=== PATIENT | male | born 1965 | race Caucasian/White ===

== ENCOUNTER → 2018-03-31 09:48 | Outpatient (CLI) | payer OTHER, SELFPAY ==
--- NOTE | 2018-03-31 09:50 | RAD_ITS ---
STUDY: X-RAY - RIGHT SHOULDER REASON FOR EXAM: Male, 52 years old. Chronic shoulder pain. TECHNIQUE: 3 view(s) of the shoulder. COMPARISON: None. FINDINGS: Normal glenohumeral articulation. Normal acromioclavicular joint. Normal acromion. Normal humeral head and visualized proximal humerus. The soft tissue structures are unremarkable. Normal visualized pulmonary apex. RAD/Shoulder min 2 Views IMPRESSION: No significant abnormality identified Electronically Signed: Mohinder Thomas MD at 18:33 EDT , Service support ,
== END ==
PROVIDERS: Family Provider Internal Medicine; PCP Internal Medicine; Visit Provider Orthopaedic Surgery
DX: M25.511 Pain in right shoulder (principal)
CPT/HCPCS: 73030

== ENCOUNTER 2019-03-30 06:27 | Day surgery (SDC) | payer OTHER, SELFPAY ==
[2019-03-30] VITALS (7 sets, daily range): BP systolic 87–124; BP diastolic 59–81; PULSE 59–69; RESP 16; TEMP 36–36.7; O2SAT 95–97; BMI 30.6
--- NOTE | 2019-03-30 07:36 | PCM.HP.STD ---
Problem List (1) Personal history of colonic polyps Status: Acute History of Present Illness Date of Admission: 03/30/19 The patient is a 53 year old M who has had personal history of colon polyps. April 15, 2015 I performed a colonoscopy with polypectomy. In the ascending colon he had a tubular adenoma that I resected with a cold forcep. He denies any acute change in health. Is otherwise been feeling well. No bright red blood per rectum or melena. No abdominal pain. No change in bowel habits. Past Medical History Allergies lovastatin Allergy (Verified 03/27/19 16:11) joint pain miconazole [From Neosporin AF] Allergy (Verified 03/27/19 16:11) rash Home Medications: Ambulatory Orders Medication Instructions Recorded aspirin 81 mg tablet,delayed 81 mg PO QDAY 03/31/18 release cholecalciferol (vitamin D3) 5,000 2,000 unit PO QDAY 03/31/18 unit capsule gabapentin 600 mg tablet 600 mg PO TID 03/31/18 hydrochlorothiazide 12.5 mg capsule 25 mg PO QDAY 03/31/18 lisinopril 30 mg tablet 40 mg PO QDAY 03/31/18 mecobalamin (vitamin B12) 1,000 1,000 mcg SUBLINGUAL QDAY 03/31/18 mcg disintegrating tablet,sublingual omeprazole 20 mg capsule,delayed 20 mg PO QDAY 03/31/18 release rosuvastatin 40 mg tablet 40 mg PO QHS 03/31/18 Allopurinol 100 mg PO DAILY 03/27/19 Multivit-Min/Folic/Vit K/Lycop 1 ea PO DAILY 03/27/19 [Men's 50 Plus Multivitamin Tab] Smoking Status: Never smoker Tobacco Use: Chew Review of Systems Constitutional: Denies: Anorexia HEENT: Denies: Difficulty Swallowing Cardiovascular: Denies: Chest Pain Respiratory: Denies: Cough Gastrointestinal: Denies: Abdominal Pain, Hematochezia, Melena Endocrine: Denies: Change in Body Habitus VTE Information - Inpt Only VTE Present on Admission: No Patient Problems: Active and Suspected Problems Personal history of colonic polyps (Acute) - Physical Exam General: Alert, Oriented x3, Cooperative, No apparent distress Oral: Moist Mucosa Neck: Supple Lungs: Clear to auscultation Cardiovascular: Regular rate, Regular Rhythm Abdomen: Bowel Sounds Present, Soft, Non Tender Extremities: No Calf Tenderness Psych/Mental Status: Normal Affect Vital Signs Temp Pulse Resp BP Pulse Ox 96.8 F L 65 16 124/81 H 96 03/30/19 06:51 03/30/19 06:51 03/30/19 06:51 03/30/19 06:51 03/30/19 06:51 Oxygen Delivery Method Room Air Weight: 184 lb 1.376 oz Body Mass Index (BMI) 30.6 Assessment/Plan All Active Problems Personal history of colonic polyps (Acute) 53-year-old gentleman. Personal history of tubular adenoma of the ascending colon. I recommend a surveillance colonoscopy with possible biopsy or polypectomy is indicated. He is aware of the technique, benefits, risks, alternatives. He has had an opportunity to ask and have questions answered. He presents via our open access program today. Stuart Tracy M.D., F.A.C.S.
--- NOTE | 2019-04-04 10:44 | OP.ENDO_ITS ---
04/04/2019 Romeo Burch Re : Colonoscopy procedure for Koby Robbins Deafer Burch This procedure was performed on Saturday, March 30, 2019. My impressions and recommendations are as follows: Impressions : - Diverticulosis in the sigmoid colon. - The examination was otherwise normal. - No specimens collected. Recommendations : - Discharge patient to home. - Resume previous diet. - Continue present medications. - Repeat colonoscopy in 5 years for surveillance. My findings are described in the full procedure note, which is enclosed. If I can be of further assistance, please feel free to contact me at Doctor phone number(s): Work: . Sincerely, Stuart Tracy MD 03/30/2019 8:02:25 AM This report has been signed electronically.
== END 2019-03-30 08:38 | disposition home or self-care (01) ==
LOC: EN 06:27 → AC 06:29
PROVIDERS: Family Provider Internal Medicine; PCP Internal Medicine; Referring Provider Internal Medicine; Visit Provider Surgery
PROC: 0DJD8ZZ Inspection of Lower Intestinal Tract, Via Natural or Artificial Opening Endoscopic (ICD-10-PCS; CPT 45378; principal; 2019-03-30 07:25)
DX: Z86.010 Personal history of colon polyps (principal); K57.30 Diverticulosis of large intestine without perforation or abscess without bleeding; I10 Essential (primary) hypertension; G47.30 Sleep apnea, unspecified; K21.9 Gastro-esophageal reflux disease without esophagitis; E78.00 Pure hypercholesterolemia, unspecified; Z79.82 Long term (current) use of aspirin; Z79.899 Other long term (current) drug therapy
CPT/HCPCS: 45378; J7120; J2405

== ENCOUNTER → 2019-08-13 14:22 | Outpatient (CLI) | payer OTHER, SELFPAY ==
[2019-08-13 14:08] VITALS: BMI 30.6
--- NOTE | 2019-08-13 14:22 | RAD_ITS ---
STUDY: X-RAY - LEFT SHOULDER REASON FOR EXAM: Male, 54 years old. Chronic pain, no history of injury. TECHNIQUE: 4 view(s) of the shoulder. COMPARISON: None. 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 Normal acromioclavicular joint. Normal acromion. Normal humeral head and visualized proximal humerus. The soft tissue structures are unremarkable. There is no demonstrated fracture. Normal visualized pulmonary apex. RAD/Shoulder min 2 Views IMPRESSION: Degenerative disease as described above, otherwise normal x-ray examination of the shoulder. Electronically Signed: Irlanda Bailon MD at 2:02 EST , Service support ,
== END ==
PROVIDERS: Family Provider Internal Medicine; PCP Internal Medicine; Referring Provider Physician Assistant; Visit Provider Physician Assistant
DX: M25.512 Pain in left shoulder (principal)
CPT/HCPCS: 73030

== ENCOUNTER 2022-08-03 13:48 | Emergency (ER) | payer OTHER, SELFPAY ==
[2022-08-03 13:50] VITALS: BP 139/87; PULSE 99; RESP 20; TEMP 36.7; O2SAT 97; BMI 34.2
--- NOTE | 2022-08-03 14:15 | EDS_ITS ---
HPI History of Present Illness Chief Complaint: Fall Narrative Narrative: 57-year-old male here for fall. Patient states he fell for approximate 12 feet. Fell onto his right side. States he got right-sided pain is constant, severe without alleviating factors. Denies taking blood thinners. He does note head trauma. Denies loss of consciousness. Does note back and abdominal pain as well PFSH [facility] Medical History (Updated 08/03/22 @ 17:[address] Duarte Ruiz, DO) Anemia Gout High cholesterol HTN (hypertension) Neuropathy Home Medications aspirin 81 mg tablet,delayed release 81 mg PO QDAY 03/31/18 [History Last Taken 03/19/19] cholecalciferol (vitamin D3) 125 mcg (5,000 unit) capsule 2,000 unit PO QDAY SUPPLEMENT 03/31/18 [History Last Taken Unknown] gabapentin 600 mg tablet 600 mg PO TID PAIN 03/31/18 [History Last Taken 03/30/19 05:50 600 MG] hydrochlorothiazide 12.5 mg capsule 25 mg PO QDAY HTN 03/31/18 [History Last Taken Unknown] lisinopril 30 mg tablet 40 mg PO QDAY HTN 03/31/18 [History Last Taken 03/30/19 05:50 40 MG] mecobalamin (vitamin B12) 1,000 mcg disintegrating tablet,sublingual 1,000 mcg sublingual QDAY 03/31/18 [History Last Taken Unknown] omeprazole 20 mg capsule,delayed release 20 mg PO QDAY GERD 03/31/18 [History Last Taken 03/30/19 05:50 20 MG] rosuvastatin 40 mg tablet 40 mg PO QHS CHOLESTEROL 03/31/18 [History Last Taken Unknown] allopurinol 100 mg tablet 100 mg PO DAILY GOUT 03/27/19 [History Last Taken Unknown] yytryoeaqgkq-qwj-dfryc acid-vit K-lycop 400 mcg-20 mcg-370 mcg tablet 1 ea PO DAILY SUPPLEMENT 03/27/19 [History Last Taken Unknown] Allergy/AdvReac Type Severity Reaction Status Date / Time lovastatin Allergy joint pain Verified 08/03/22 13:54 miconazole Allergy rash Verified 08/03/22 13:54 [From Neosporin AF] Social History (Updated 08/14/19 @ 14:03 by Damaso Lee PA, PA) Smoking Status: Never smoker ROS ROS ED ROS Narrative Constitutional: Denies fever HEENT: Denies sore throat Neck: Denies neck pain Cardiovascular: Denies chest pain, syncope Respiratory: Denies shortness of breath GI: Denies nausea vomiting . Endorses abdominal pain : Denies changes in urinary habits Musculoskeletal: Notes diffuse joint pain, back pain, left shoulder pain Neurologic: Denies numbness weakness or loss of sensation Skin denies rash EXAM Physical Exam Narrative Exam Narrative: Primary Survey Airway: Intact Breathing: Bilateral breath sounds Circulation: Palpable bilateral femorals, Palpable bilateral radial, Palpable bilateral DP and Palpable bilateral PT Disability / Spine precautions GCS Score: Eye Openin Verbal Response: 5 Motor Response: 6 Secondary Survey Constitutional: Please see MDM Head: Atraumatic, Midface stable, NO jaw malocclusion, No Cephalohematoma, and No Lacerations noted Eye: Pupils equal round and reactive to light, Extraocular muscles intact and No periorbital ecchymosis or stepoff, no evidence of entrapment ENT: Oropharynx clear, no lacerations, no hemotympanum, no raccoon eyes or mora sign Cervical spine / Neck: No cervical spine bony tenderness, crepitance, or stepoff deformity Trachea midline Lungs: Clear to auscultation, No asymmetric rise and No crepitus, no flail chest. TTP over right ribs. Cardiac: Regular rate and rhythm and No murmurs Abdomen: Soft, No rebound, mild diffuse tenderness Pelvis: Pelvis stable to compression : No evidence of genital injury Back: No midline bony tenderness to thoracic/lumbar/sacral spines Neuro: At baseline, intact strength and sensation in bilateral upper and lower extremities. 2+ patellar reflexes bilaterally. Extremities: NO gross Deformities Psych: Normal affect Const Vital Signs: 08/03/22 15:32 08/03/22 17:20 08/03/22 17:54 Pulse Rate 108 H 106 H 108 H Respiratory Rate 19 H 22 H 20 H Blood Pressure 156/88 H 160/102 H 160/102 H Blood Pressure Mean 110 121 Pulse Ox 95 96 Oxygen Delivery Method Room Air Room Air [facility] [place] Medical decision making narrative: 57-year-old male here after approximate 12 foot fall. The patient was hemodynamically stable, afebrile, nontoxic-appearing. Primary secondary trauma surveys concerning for intracranial normalities, cervical spine abnormalities, chest abnormalities, abnormalities of the abdomen and pelvis, imaging was unremarkable. Radiography Diagnostic Testing: Clinical Impression(s) from Imaging Studies Brain CT 08/03/22 14:27 IMPRESSION: Normal unenhanced CT scan of the brain. Electronically Signed: Gage Linda MD at 15:43 EDT , Cervical Spine CT 08/03/22 14:27 IMPRESSION: Multilevel degenerative changes, as described above. Electronically Signed: Gage Linda MD at 15:42 EDT , Chest/Abdomen/Pelvis CT 08/03/22 14:27 IMPRESSION: Degenerative changes of the left shoulder joint with findings suggestive of a osteochondromatosis. Right renal cysts. Electronically Signed: Gage Linda MD at 15:39 EDT , Lumbar Spine CT 08/03/22 14:27 IMPRESSION: Multilevel degenerative changes, as described above. Electronically Signed: Gage Linda MD at 15:40 EDT , Thoracic Spine CT 08/03/22 14:27 IMPRESSION: Spondylosis and disc space narrowing at multiple levels. No evidence of a compression fracture. Electronically Signed: Gage Linda MD at 15:48 EDT , Shoulder X-Ray 08/03/22 17:15 IMPRESSION: Stable degenerative changes of the left shoulder without acute fracture or dislocation. Electronically Signed: Edu Sorensen DO at 17:41 EDT Reading Location ID and State: [facility] / [place] Tel [phone], Service support , Treatment and Re-Evaluation Narrative: Tertiary exam with ongoing left shoulder pain. Dedicated left shoulder image was negative for acute fracture dislocation. Patient was given a sling and dis charged home in stable condition with a sling. Return precautions discussed. Follow-up discussed. Shared decision making: I had a long discussion with the patient and or visitors regarding risk/benefits of further testing or admission. They decided to forego any further testing or admission. They are aware of of the risk/benefits inherent in this decision and have voiced understanding. Discharge Plan Triage Chief Complaint: Fall ED Provider: Duarte Ruiz Dx/Rx/DC Orders Clinical Impression: CHI (closed head injury), Contusion of left shoulder, Contusion of rib Instructions: ED Shoulder Contusion Prescriptions: No Action lisinopril 30 mg tablet 40 mg PO QDAY mecobalamin (vitamin B12) 1,000 mcg tablet,disintegrating 1,000 mcg SUBLINGUAL QDAY cholecalciferol (vitamin D3) 5,000 unit capsule 2,000 unit PO QDAY rosuvastatin 40 mg tablet 40 mg PO QHS gabapentin 600 mg tablet 600 mg PO TID hydrochlorothiazide 12.5 mg capsule 25 mg PO QDAY omeprazole 20 mg capsule,delayed release(DR/EC) 20 mg PO QDAY aspirin 81 mg tablet,delayed release (DR/EC) 81 mg PO QDAY allopurinol 100 MG tablet 100 mg PO DAILY rrlnyujo-nxt-wzsdq-vit K-lycop 1 EACH tablet 1 ea PO DAILY Primary Care Provider: Romeo Burch Referrals: Romeo Burch MD [Primary Care Provider] - Activity Restrictions/Additional Instructions: Please take Tylenol, ibuprofen for further pain control at home. Please follow with your primary care physician for further outpatient evaluation. Disposition Disposition: Home, Self Care Discharge Date/Time: 08/03/22 18:11
--- NOTE | 2022-08-03 14:27 | CT_ITS ---
STUDY: CT THORACIC SPINE WITHOUT CONTRAST REASON FOR EXAM: Male, 57 years old. Fall, back pain RADIATION DOSAGE (If Supplied By Facility): CTDIvol = ( 23.97 ) mGy, DLP = ( 4173.71 ) mGycm TECHNIQUE: The patient was scanned in a multi detector CT scanner. High resolution imaging was performed. Images were obtained from T1 to T12. Sagittal and coronal images were reconstructed. Individualized dose optimization techniques were used for this CT. COMPARISON: None. FINDINGS: Normal visualized cervical spine. Normal kyphosis of the thoracic spine. There is no substantial scoliosis. There is multilevel endplate spondylosis of the thoracic spine. There is multilevel degenerative disc disease with loss of the disc space heights. The soft tissue structures are unremarkable. CT/Spine Thoracic without Contras IMPRESSION: Spondylosis and disc space narrowing at multiple levels. No evidence of a compression fracture. Electronically Signed: Gage Linda MD at 15:48 EDT ,
--- NOTE | 2022-08-03 14:27 | CT_ITS ---
STUDY: CT CERVICAL SPINE WITHOUT CONTRAST REASON FOR EXAM: Male, 57 years old. Fall, neck pain RADIATION DOSAGE (If Supplied By Facility): CTDIvol = ( 27.05 ) mGy, DLP = ( 1432.93 ) mGycm TECHNIQUE: High resolution transaxial imaging was performed without contrast material. Sagittal and coronal images were reconstructed. Individualized dose optimization techniques were used for this CT. COMPARISON: None FINDINGS: Normal craniovertebral junction. There are degenerative changes of the anterior atlantoaxial articulation. Normal odontoid process. Normal cervical lordosis. Normal vertebral bodies and posterior osseous elements. C2-3: Normal endplates. Normal disc height and morphology. Normal central canal and intervertebral neuroforamina. C3-4: Normal endplates. Normal disc height and morphology. Normal central canal and intervertebral neuroforamina. C4-5: Moderate degree of disc space narrowing. Facet joint osteoarthritis and uncovertebral arthrosis. Mild degree of bilateral neural foraminal stenosis. C5-6: Moderate degree of disc space narrowing. Uncovertebral arthrosis and facet joint osteoarthritis and hypertrophy. Moderate degree of bilateral neural foraminal stenosis. C6-7: Moderate degree of disc space narrowing. Uncovertebral arthrosis. Bilateral neural foraminal stenosis slightly worse on the left side. C7-T1: Mild degree of disc space narrowing. Normal visualized soft tissue structures. CT/Spine Cervical without Contras IMPRESSION: Multilevel degenerative changes, as described above. Electronically Signed: Gage Linda MD at 15:42 EDT ,
--- NOTE | 2022-08-03 14:27 | CT_ITS ---
STUDY: CT CHEST, ABDOMEN T PELVIS WITHOUT CONTRAST REASON FOR EXAM: Male, 57 years old. Fall from a roof. Left shoulder pain and left rib pain. RADIATION DOSAGE (If Supplied By Facility): CTDIvol = ( 22.85 ) mGy, DLP = ( 4173.71 ) mGycm TECHNIQUE: Transaxial imaging was performed without the administration of intravenous contrast material. Multiplanar coronal and sagittal images were reformatted. Individualized dose optimization techniques were used for this CT. COMPARISON: No relevant priors. FINDINGS: CHEST Mild degree of dependent bibasilar atelectasis. There is no demonstrated pleural abnormality. There are calcifications of the coronary arteries. Normal mediastinum. Normal hilar regions. Normal unenhanced pulmonary arteries. Normal aorta arch and descending thoracic aorta. There are multi-level degenerative changes of the thoracic spine. Moderate degree of joint space narrowing and osteoarthritis of the left shoulder joint. There is a 1.7 cm x 1 cm calcific density in the deep soft tissues of the left shoulder. This may represent osteochondromatosis. There is no demonstrated abnormality of the visualized upper abdomen. ABDOMEN Normal liver. Normal gallbladder and extrahepatic biliary system. Normal spleen. Normal pancreas. Normal bilateral adrenal glands. There is a 2.4 cm cyst in the posterior lower pole of the right kidney as well as a 1.9 cm cyst in the upper medial portion of the right kidney. Normal left kidney. There is a small hiatal hernia. Normal small intestine. There are multiple colonic diverticula consistent with diverticulosis. There are surgical clips in the region of the appendix consistent with a prior appendectomy. There is scattered atherosclerotic calcification of the abdominal aorta, without a demonstrated aneurysm. Normal inferior vena cava. Normal retroperitoneum. There is a small umbilical hernia containing fat. Normal osseous structures. PELVIS Distended urinary bladder. Normal visualized small intestine. There are scattered colonic diverticula of the sigmoid colon consistent with chronic diverticulosis. There is no pelvic fluid. There is no pelvic lymphadenopathy or mass lesion. Normal visualized pelvic arteries. CT/CT Chest, Abd, Pelvis WO Cont IMPRESSION: Degenerative changes of the left shoulder joint with findings suggestive of a osteochondromatosis. Right renal cysts. Electronically Signed: Gage Linda MD at 15:39 EDT ,
--- NOTE | 2022-08-03 14:27 | CT_ITS ---
STUDY: CT LUMBAR SPINE WITHOUT CONTRAST REASON FOR EXAM: Male, 57 years old. Fall, back pain RADIATION DOSAGE (If Supplied By Facility): CTDIvol = ( 31.53 ) mGy, DLP = ( 4173.71 ) mGycm TECHNIQUE: The patient was scanned in a multi detector CT scanner. High resolution transaxial imaging was performed. Images were obtained from L1 to S1 level. Sagittal and coronal images were reconstructed. Individualized dose optimization techniques were used for this CT. COMPARISON: None FINDINGS: Normal lumbar lordosis. There is no substantial scoliosis. Normal vertebrae of the lumbar spine. L1-2: Mild degree of anterior spondylosis. L2-3: Mild degree of anterior spondylosis. L3-4: Normal endplates. Normal disc height and morphology. Normal bilateral facet joints. Normal central canal and bilateral lateral recesses. Normal bilateral intervertebral neural foramina. L4-5: Mild degree of central posterior disc bulge. No significant stenosis seen. L5-S1: Normal endplates. Normal disc height and morphology. Normal bilateral facet joints. Normal central canal and bilateral lateral recesses. Normal bilateral intervertebral neural foramina. Right renal cysts. CT/Spine Lumbar without Contrast IMPRESSION: Multilevel degenerative changes, as described above. Electronically Signed: Gage Linda MD at 15:40 EDT ,
--- NOTE | 2022-08-03 14:27 | CT_ITS ---
STUDY: CT BRAIN WITHOUT CONTRAST REASON FOR EXAM: Male, 57 years old. Fall, head trauma RADIATION DOSAGE (If Supplied By Facility): CTDIvol = ( 44.99 ) mGy, DLP = ( 1432.93 ) mGycm TECHNIQUE: Transaxial CT imaging of the brain was performed without administration of intravenous contrast material. Individualized dose optimization techniques were used for this CT. COMPARISON: No relevant priors. FINDINGS: Normal soft tissue structures. Normal calvarium. Normal size ventricles and extra-axial spaces for the patient''s age. Normal white matter tracts of the cerebral hemispheres. Normal basal ganglia and thalami. Normal brainstem. Normal cerebellum. There is no intracranial hemorrhage. There are no findings of an acute ischemic infarction. Normal visualized paranasal sinuses. CT/Brain/Head without Contrast IMPRESSION: Normal unenhanced CT scan of the brain. Electronically Signed: Gage Linda MD at 15:43 EDT ,
[2022-08-03 14:28] VITALS: BP 137/92; PULSE 103; RESP 24; O2SAT 97
[2022-08-03] MEDS: Ondansetron 4 MG/2 ML Vial IV (14:31)
[2022-08-03] MEDS: Morphine 4 MG/ML Syringe IV (14:32)
[2022-08-03] MEDS: 0.9% Normal Saline 1,000 ML 999 ML IV (14:34)
[2022-08-03] MEDS: HYDROmorphone 0.5 MG/0.5 ML SYRINGE IV ×2 (15:27→17:18)
[2022-08-03 15:32] VITALS: BP 156/88; PULSE 108; RESP 19; O2SAT 95
--- NOTE | 2022-08-03 17:15 | RAD_ITS ---
INDICATION: 12 foot fall from roof. Landed on steps and parotid glands. EXAMINATION/TECHNIQUE: X-RAY - LEFT XR Shoulder Min 2 Views 2 VIEWS COMPARISON: Left shoulder, August 13, 2022. FINDINGS: SOFT TISSUES: No soft tissue swelling or gas. No radiopaque foreign body. BONES/JOINTS: There are stable degenerative changes of the glenohumeral and acromioclavicular joint.. Normal alignment. Preservation of the joint space.. No acute fracture or dislocation. No sclerotic or destructive changes observed. RAD/Shoulder min 2 Views IMPRESSION: Stable degenerative changes of the left shoulder without acute fracture or dislocation. Electronically Signed: Edu Sorensen DO at 17:41 EDT ,
[2022-08-03 17:20] VITALS: BP 160/102; PULSE 106; RESP 22; O2SAT 96
[2022-08-03 17:54] VITALS: BP 160/102; PULSE 108; RESP 20
== END 2022-08-03 18:11 | disposition home or self-care (01) ==
PROVIDERS: Emergency Provider Emergency Medicine; PCP Internal Medicine; Visit Provider Emergency Medicine
DX: S09.90XA Unspecified injury of head, initial encounter (principal); E78.00 Pure hypercholesterolemia, unspecified; I10 Essential (primary) hypertension; R10.9 Unspecified abdominal pain; S20.219A Contusion of unspecified front wall of thorax, initial encounter; S40.012A Contusion of left shoulder, initial encounter; W17.89XA Other fall from one level to another, initial encounter; M10.9 Gout, unspecified; G62.9 Polyneuropathy, unspecified; Z79.82 Long term (current) use of aspirin
CPT/HCPCS: 70450; 71250; 72125; 72128; 72131; 73030; 74176; 96374; 96375; 96376; 99285; J7030; J2405

== ENCOUNTER 2025-01-13 17:05 | Emergency (ER) | payer OTHER, SELFPAY ==
[2025-01-13 17:06] VITALS: BP 179/102; PULSE 85; RESP 18; TEMP 37.2; O2SAT 95; BMI 31.6
[2025-01-13] MEDS: Fluorescein 1 MG STRIP 1 STRIP LEFT EYE (17:37)
[2025-01-13] MEDS: Ondansetron ODT 4 MG Tablet PO (17:37)
[2025-01-13] MEDS: Tetracaine 0.5% Ophthalmic Bottle 1 DRP LEFT EYE (17:37)
--- NOTE | 2025-01-13 17:54 | CT_ITS ---
PROCEDURE: BRAIN/HEAD WITHOUT CONTRAST N/A REASON FOR EXAM: INJURY TECHNIQUE: Head CT without intravenous contrast. Coronal and Sagittal reconstruction series were provided. One or more dose reduction techniques were used (e.g., Automated exposure control, adjustment of the mA and/or kV according to patient size, use of iterative reconstruction technique. COMPARISON: None FINDINGS: * ACUTE: No acute infarct or hemorrhage. No mass effect or herniation. * BRAIN PARENCHYMA: Signal intensities are within normal limits for age. * VENTRICLES/EXTRA-AXIAL SPACES: No hydrocephalus or extra-axial fluid collections. * EXTRACRANIAL STRUCTURES: Visualized osseous structures are normal. Soft tissues are normal. CT/Brain/Head without Contrast IMPRESSION: No acute intracranial abnormality. Reading Location: [facility]
--- NOTE | 2025-01-13 18:02 | EX.ED.GENINJ ---
HPI History of Present Illness Chief Complaint: Head Injury Informant: patient and spouse/S.O. Narrative Narrative: 59-year-old male states yesterday he was working in his garage when he was hit in the left forehead/periorbital region with a tool. He notes that he can move backwards but his glasses. He did not have a loss of consciousness. He notes he sandpapery like feeling in his eye on the left. He notes tearing of the eye with some light sensitivity and some blurry vision. Notes nausea frontal headache. He also notes some pain over the medial aspect of the lower right knee. He does not know if he twisted it when the injury happened. He does generally feels fatigued. [facility] Medical History Anemia Gout Neuropathy High cholesterol HTN (hypertension) Home Medications ?Medication ?Instructions ?Recorded ?Last Taken ?Type aspirin 81 mg tablet,delayed 81 mg PO QDAY 03/31/18 03/19/19 History release cholecalciferol (vitamin D3) 125 2,000 unit PO QDAY SUPPLEMENT 03/31/18 Unknown History mcg (5,000 unit) capsule gabapentin 600 mg tablet 600 mg PO TID PAIN 03/31/18 03/30/19 05:50 History 600 MG hydrochlorothiazide 12.5 mg capsule 25 mg PO QDAY HTN 03/31/18 Unknown History lisinopril 30 mg tablet 40 mg PO QDAY HTN 03/31/18 03/30/19 05:50 History 40 MG mecobalamin (vitamin B12) 1,000 1,000 mcg sublingual QDAY 03/31/18 Unknown History mcg disintegrating tablet,sublingual omeprazole 20 mg capsule,delayed 20 mg PO QDAY GERD 03/31/18 03/30/19 05:50 History release 20 MG rosuvastatin 40 mg tablet 40 mg PO QHS CHOLESTEROL 03/31/18 Unknown History allopurinol 100 mg tablet 100 mg PO DAILY GOUT 03/27/19 Unknown History upaijikkhmmw-vzt-mulsj acid-vit 1 ea PO DAILY SUPPLEMENT 03/27/19 Unknown History K-lycop 400 mcg-20 mcg-370 mcg tablet ondansetron 4 mg disintegrating 4 mg PO Q6H PRN PRN Nausea #15 tabs 01/13/25 Unknown Rx tablet Allergy/AdvReac Type Severity Reaction Status Date / Time lovastatin Allergy joint pain Verified 01/13/25 17:06 miconazole (From Neosporin Allergy rash Verified 01/13/25 17:06 AF) Family History no significant family his Social History Smoking Status: Never smoker ROS ROS ED Constitutional Constitutional ED: Denies chills or weight loss Eyes Eyes: Reports blurry vision and other Details: Foreign body feeling left on ; Denies change in vision or diplopia ENT ENT ED: Denies ear pain, rhinorrhea or sore throat Cardiovascular Cardiovascular: Denies chest pain, orthopnea, palpitations or racing heartbeat Respiratory/Chest Respiratory/Chest: Denies cough, dyspnea or orthopnea Gastrointestinal Gastrointestinal: Reports nausea; Denies abdominal pain, diarrhea or vomiting Genitourinary Genitourinary ED: Denies dysuria, hematuria or urinary frequency Musculoskeletal Musculoskeletal: Reports other Details: Knee pain ; Denies arthralgias or myalgias Integumentary Denies abscess or rash Neurologic Neurologic: Reports headache(s); Denies weakness Psychiatric Psychiatric: Denies anxiety, depression, suicidal ideation or suicidal thoughts Endocrine Endocrinology: Denies polydipsia, polyphagia or polyuria Allergic/Immunologic Allergic/Immunologic ED: Denies mouth swelling, tongue swelling or urticaria EXAM Physical Exam Const Vital Signs: 01/13/25 17:06 01/13/25 17:58 01/13/25 18:49 Temperature 98.9 F 98.9 F Temperature Source Temporal Pulse Rate 85 85 Respiratory Rate 18 16 Respiratory Effort Normal Non-Labored Respiratory Depth Normal Respiratory Pattern Normal Blood Pressure 179/102 H 179/102 H Blood Pressure Mean 127 127 Pulse Ox 95 95 Oxygen Delivery Method Room Air Room Air Positive well nourished and well developed General Appearance ED: well developed and NAD HEENT Reports normocephalic and moist mucous membranes HEENT Narrative: There is some mild tenderness forehead swelling just above the left eye above the eyebrow. Infraorbital. No septal hematoma. No nasal deformity. Eyes PERRL and EOMs intact bilaterally General Eye ED: Yes other Other Details: Left eye shows conjunctival injection. There is a visualized corneal abrasion without staining. It is more of a square stain in the mid cornea. Negative Allen sign. No obvious foreign body on eyelid eversion. No palpable bony depression. Extraocular motions are intact. Neck no lymphadenopathy, supple and no JVD Resp normal respiratory effort and clear to auscultation bilaterally Cardio regular rate, regular rhythm and no murmurs GI normal to inspection, nondistended, normoactive bowel sounds and non-tender Palpation: soft Back/Spine no CVA tenderness and normal ROM Extremity Extremity Narrative: Mild tenderness to palpation over the medial lower right knee at the level of the tibial plateau. I do not appreciate significant swelling or effusion. No ecchymosis. Ligaments appear stable. He describes most of his pain with medial stressing. General Extremety ED: Negative for edema General Extremity: Negative for edema Neuro oriented x3 and CN's II-XII intact bilaterally Sensorium / Orientation: alert Motor Exam: strength 5/5 throughout Psych mental status grossly normal Mood & Affect: Negative for depressed or tearful Skin no rashes or lesions noted and no wounds MDM MDM MDM Narrative Medical decision making narrative: Differential diagnosis includes knee fracture ligamentous injury contusion concussion intracranial hemorrhage skull fracture facial fracture corneal abrasions of conjunctival hemorrhage hyphema corneal ulcer retro-orbital hematoma Corneal abrasion was treated with erythromycin ophthalmic ointment. CT the brain demonstrates no intracranial hemorrhage or obvious fracture. There is no retro-orbital hematoma my independent interpretation plain films of the right knee is no acute fracture. Patient will be discharged home with concussion precautions. I can write for [facility]. Would recommend PCP follow-up in a week if continued symptoms. He also has an upcoming appointment this week with his eye doctor to check on the corneal abrasion. History & Record Review Discussion w/independent historian: Patient and Significant other Radiography Diagnostic Testing: Clinical Impression(s) from Imaging Studies Brain CT 01/13/25 17:54 IMPRESSION: No acute intracranial abnormality. [facility]-Ray 01/13/25 18:05 IMPRESSION: No acute fracture or dislocation. Reading Location: [id number] Discharge Plan Triage Chief Complaint: Head Injury ED Provider: Biju Cartwright Dx/Rx/DC Orders Clinical Impression: Abrasion, corneal, Concussion, Right knee sprain Prescriptions: New ondansetron 4 mg tablet,disintegrating 4 mg PO Q6H PRN PRN (Reason: Nausea) Qty: 15 0RF No Action lisinopril 30 mg tablet 40 mg PO QDAY mecobalamin (vitamin B12) 1,000 mcg tablet,disintegrating 1,000 mcg SUBLINGUAL QDAY cholecalciferol (vitamin D3) 5,000 unit capsule 2,000 unit PO QDAY rosuvastatin 40 mg tablet 40 mg PO QHS gabapentin 600 mg tablet 600 mg PO TID hydrochlorothiazide 12.5 mg capsule 25 mg PO QDAY omeprazole 20 mg capsule,delayed release(DR/EC) 20 mg PO QDAY aspirin 81 mg tablet,delayed release (DR/EC) 81 mg PO QDAY allopurinol 100 MG tablet 100 mg PO DAILY [id number] K-lycop 1 EACH tablet 1 ea PO DAILY Primary Care Provider: Romeo Burch Referrals: Romeo Burch MD [Primary Care Provider] - Activity Restrictions/Additional Instructions: Antibiotic ointment 4 times a day for the next 5 days. Follow-up with eye doctor as scheduled for recheck to ensure resolution of the abrasion I wrote for [facility] for nausea. Most concussive symptoms will resolve within 1 week. He continued to have symptoms please follow-up with your doctor in 1 week. Print Language: Icelandic Disposition Disposition: Home, Self Care Discharge Date/Time: 01/13/25 18:50
--- NOTE | 2025-01-13 18:05 | RAD_ITS ---
PROCEDURE: KNEE 4 OR MORE VIEWS 01/13/2025 REASON FOR EXAM: INJURY TECHNIQUE: 4 view(s) of the right knee FINDINGS: Bones: Unremarkable. Joints: Mild joint space narrowing and osteophyte formation consistent with mild arthrosis. Effusion: None Soft tissues: Unremarkable. Other: RAD/Knee 4 or More Views IMPRESSION: No acute fracture or dislocation. Reading Location: [id number]
[2025-01-13] MEDS: Erythromycin Base 1 OPTH.TUBE 1 APPLIC LEFT EYE (18:21)
[2025-01-13 18:49] VITALS: BP 179/102; PULSE 85; RESP 16; TEMP 37.2; O2SAT 95
== END 2025-01-13 18:50 | disposition home or self-care (01) ==
LOC: ED 18:16
PROVIDERS: Emergency Provider Emergency Medicine; PCP Internal Medicine; Visit Provider Emergency Medicine
DX: S06.0X0A Concussion without loss of consciousness, initial encounter (principal); S05.02XA Injury of conjunctiva and corneal abrasion without foreign body, left eye, initial encounter; S83.91XA Sprain of unspecified site of right knee, initial encounter; W22.8XXA Striking against or struck by other objects, initial encounter; Y92.015 Private garage of single-family (private) house as the place of occurrence of the external cause; I10 Essential (primary) hypertension; E78.00 Pure hypercholesterolemia, unspecified; Z79.82 Long term (current) use of aspirin; Z79.899 Other long term (current) drug therapy
CPT/HCPCS: 70450; 73564; 99282